=== PATIENT | male | born 1985 | race Two or more races ===

== ENCOUNTER 2024-05-19 16:15 | Emergency (ER) | payer MEDICAID, SELFPAY ==
--- NOTE | 2024-05-19 16:59 | EDNOTE_ITS ---
<Statement entered by Tasha Romero MD - 05/19/24 23:40> As co-signing physician, I was present and available for consult prn. I concur with the plan and care as documented by the midlevel provider. ED Psych RME/HPI General Chief Complaint: Psychiatric Symptoms Stated Complaint: HOLD FOR HALLUCINATION Time Seen by Provider: 05/19/24 16:47 Arrival date/time: 05/19/24 16:15 RME / HPI RME / HPI Narrative: 39-year-old male patient with significant history of polysubstance abuse, was just released from the [facility] senior care, and was placed on a 5150 hold due to gravely disabled. Family cannot take care of him since patient is having bizarre behavior, talking nonsense, and danger to himself. While in the senior care, patient is bagging his head on the wall. On my initial evaluation patient knows his name and does not answer questions when asked except for the name. EMS told me that the patient is having visual and auditory hallucination. Patient is not taking any medication for mental health. Patient is calm cooperative and calm. Related Data Home Medications ?Medication ?Instructions ?Recorded ?Confirmed Unobtainable 02/12/23 02/12/23 Allergies Allergy/AdvReac Type Severity Reaction Status Date / Time No Known Allergies Allergy Verified 09/06/18 16:34 Review of Systems Review of Systems Narrative Review of Systems: Review of system reviewed and within normal limits except mentioned in HPI ED Exam Narrative Physical exam: VITAL SIGNS: Reviewed. GENERAL APPEARANCE: Alert and interactive, does not follows commands, no acute distress, bizarre thoughts HEAD AND FACE: Non-traumatic. ENT: PERRL, pink conjunctivitis, eyelid no trauma, Mucous membrane moist. NECK: Supple, nontender, no nuchal rigidity. CHEST: No tenderness, no crepitus, no paradoxical movement, no retractions. LUNGS: Clear, well ventilated, symmetric, no rales, no wheezing, no ronchi, no stridor, good breath sounds bilaterally. HEART: Regular rate, regular rhythm, no murmur, no gallops. ABDOMEN: Soft, positive bowel sounds, nondistended, no guarding, nontender, no rebound, no masses, RECTAL: Deferred. GENITAL: Deferred. NEUROLOGICAL: Gross motor function intact sensory function intact, Appropriate for age. MUSCULOSKELETAL: low back nontender, full range of motion. EXTREMITIES: Nontender, full range of motion. SKIN: Color pink, dry, no rash, no lacerations, no abrasions, no contusions. LYMPHATICS: Deferred. Course Quality Measures none Orders Category Date Time Status Acetaminophen Stat Lab 05/19/24 17:04 Completed Alcohol, Blood Medical Stat Lab 05/19/24 17:04 Completed CBC Stat Lab 05/19/24 17:04 Completed CMP [Comprehensive Metabolic Panel] Stat Lab 05/19/24 17:04 Completed Drug Screen,Urine Stat Lab 05/19/24 16:58 Ordered Salicylate Stat Lab 05/19/24 17:04 Completed Urinalysis Stat Lab 05/19/24 16:58 Ordered Vital Signs Vital signs: Vital Signs Temperature 98.1 F 05/19/24 18:13 Pulse Rate 97 05/19/24 18:13 Respiratory Rate 17 05/19/24 18:13 Blood Pressure 123/69 05/19/24 18:13 Pulse Oximetry (%) 100 05/19/24 18:13 Oxygen Delivery Method Room Air 05/19/24 18:13 Psych MDM Narrative MDM Narrative:: 39-year-old male patient with significant history of polysubstance abuse, was just released from the [facility] senior care, and was placed on a 5150 hold due to gravely disabled. Family cannot take care of him since patient is having bizarre behavior, talking nonsense, and danger to himself. While in the senior care, patient is bagging his head on the wall. On my initial evaluation patient knows his name and does not answer questions when asked except for the name. EMS told me that the patient is having visual and auditory hallucination. Patient is not taking any medication for mental health. Patient is calm cooperative and calm. Patient's workup today all came back unremarkable. Patient is medically cleared for crisis the patient Care transferred to Dr Romero at 11 pm for final disposition Patient data External records reviewed:: None Clinical information provided by:: patient Social determinants that could affect healthcare access:: none Patient has the following chronic illnesses:: Polysubstance abuse How is presenting disease/condition affected by chronic disease/condition?: exacerbated by Evaluation data The following diagnostics were reviewed and interpreted by me:: lab results Lab and/or radiology exams considered but not ordered:: None Interpretation Summary: See results in MDM Medications / Prescriptions Medications or Prescriptions considered but not ordered:: None Medication administrations:: None Consultations Consultation(s) initiated? (list below): No Diagnosis Psych Differential Diagnosis: acute psychosis, chronic schizophrenia, suicidal ideation and other (Gravely disabled) Most likely diagnosis given after review of the tests above:: Gravely disabled, Admission Indicated Admission indicated?: not indicated Admission Request Was there a request for admission?: No Disposition Plan Disposition Plan: other (specify) Discharge Plan Prescriptions/Referrals Prescriptions/Med Rec: No Action Unobtainable Problem List Clinical Impression: Gravely disabled Patient/Caregiver Discharge Instructions Print Language: Korean
[2024-05-19 17:11] LABS: Basophils # (Auto) 0.1 Thou/mm3 (0.0-0.2); Basophils % (Auto) 1 % (0-2.5); Eosinophils # (Auto) 0.2 Thou/mm3 (0.0-0.5); Eosinophils % (Auto) 2 % (0-10); Hematocrit 42.4 % (41.0-53.0); Immature Granulocytes % (Auto) 0 % (0-0); Immature Granulocytes Auto 0.02 Thou/mm3 (0.00-0.00); Lymphocytes # (Auto) 2.2 Thou/mm3 (1.0-4.8); Lymphocytes % (Auto) 24 % (10-50); Mean Corpuscular HGB Conc 35.4 g/dl (31.0-37.0); Mean Corpuscular Hemoglobin 31.5 pg (25.0-35.0); Mean Corpuscular Volume 89 fL (80-100); Monocytes # (Auto) 1.2 Thou/mm3 (0.0-0.8); Monocytes % (Auto) 14 % (0-12); Neutrophils # (Auto) 5.4 Thou/mm3 (1.8-7.7); Neutrophils % (Auto) 59 % (37-80); Nucleated Red Blood Cell % 0 /100 WBC (0); Platelet Count 290 Thou/mm3 (140-440); RDW Standard Deviation 40.3 fL (35.1-43.9); Red Blood Count 4.76 Miln/mm3 (4.50-5.90); White Blood Count 9.1 Thou/mm3 (3.8-10.6)
[2024-05-19 17:54] VITALS: PULSE 92; RESP 20; O2SAT 99; BMI 26.4
[2024-05-19 18:13] VITALS: BP 123/69; PULSE 97; RESP 17; TEMP 36.7; O2SAT 100
[2024-05-19 18:15] LABS: Acetaminophen < 2.0 mcg/mL (10.0-20.0); Alanine Aminotransferase 29 U/L (10-49); Albumin, Serum 4.7 gm/dL (3.5-5.0); Albumin/Globulin Ratio 1.7 (1.2-2.2); Alcohol, Blood Medical < 3.0 mg/dL (0-10.0); Alkaline Phosphatase 93 U/L (46-116); Anion Gap 10 (7-16); Aspartate Amino Transferase 58 U/L (0-34); BUN/Creatinine Ratio 11 Ratio (12-20); Bilirubin,Total 1.3 mg/dL (0.3-1.2); Blood Urea Nitrogen 10 mg/dL (9-23); Calcium 9.4 mg/dL (8.3-10.6); Calcium (Corrected) 9.4 mg/dL (8.5-10.1); Carbon Dioxide 24.4 mMol/L (20.0-31.0); Chloride 102 mMol/L (98-107); Creatinine (Component) 0.9 mg/dL (0.6-1.3); Estimated Creatinine Clearance 89.4 mL/min (>60); Globulin 2.8 gm/dL (2.3-3.5); Glucose 84 mg/dL (74-106); Osmolality,Calculated 269 (275-295); Potassium 3.7 mMol/L (3.4-5.1); Salicylate < 3.0 mg/dL; Sodium 136 mMol/L (136-145); Total Protein 7.5 gm/dL (5.7-8.2); eGFR > 60 See Note
[2024-05-19 23:50] VITALS: BP 122/71; PULSE 103; RESP 17; TEMP 36.6; O2SAT 100
--- NOTE | 2024-05-20 00:32 | EDNOTE_ITS ---
Emergency Room Addendum Addendum Narrative: 2300: Care assumed from Mandi Odell. Past medical, surgical, social and family history reviewed. Vitals and home medications reviewed. Results and treatment plan discussed. I will assume the care of the patient at this time and will follow the patient, pending mental health evaluation and final disposition. Please refer to the emergency department record for history and examination from initial visit. The following addendum documentation note is intended to reflect any pending information, findings, or radiology results not included in the patient?s initial chart. Patient in observation for treatment and monitoring of psychiatric symptoms. Treatment plan includes psychiatric consult, reassessments, and possible placement into psychiatric facility. 0600: Care signed out to [facility] provider. Past medical, surgical, social and family history reviewed. Vitals and home medications reviewed. Results and treatment plan discussed. They will assume the care of the patient at this time and will follow the patient, pending mental health evaluation and final disposition. MD Attestation MD Attestation Scribe Attestation: I, Wiley Wall, am scribing for and in the presence of Dr. Romero. Provider Notation: Although this document has been carefully reviewed, there may still be some phonetic and other typographical errors. These errors are purely grammatical due to imperfections in the software program and should not be construed in any way to compromise the substance of the patient's medical care during this visit.
[2024-05-20 03:46] VITALS: BP 124/79; PULSE 97; RESP 16; TEMP 36.7; O2SAT 98
[2024-05-20 05:59] VITALS: BP 118/74; PULSE 101; RESP 18; TEMP 36.6; O2SAT 98
[2024-05-20 07:10] VITALS: BP 124/80; PULSE 97; RESP 19; TEMP 36.8; O2SAT 97
--- NOTE | 2024-05-20 07:12 | PD.EDADDENDU ---
Emergency Room Addendum <Yaquelin Melo - Last Filed: 05/20/24 07:13> Addendum Narrative: 0600: Care assumed from Dr. Romero, the previous shift emergency physician. Past medical, surgical, social and family history reviewed. Vitals and home medications reviewed. I will assume the care of the patient at this time, pending mental health evaluation and final disposition. Please refer to the emergency department record for history and examination from initial visit.? Physical exam by me shows patient under no acute distress at this time. <Moo Benavides MD - Last Filed: 05/20/24 07:36> Addendum Narrative: 0600: Care assumed from Dr. Romero, the previous shift emergency physician. Past medical, surgical, social and family history reviewed. Vitals and home medications reviewed. I will assume the care of the patient at this time, pending mental health evaluation and final disposition. Please refer to the emergency department record for history and examination from initial visit.? Physical exam by me shows patient under no acute distress at this time. Patient was comfortable throughout the night sleeping this morning was reevaluated and he is alert awake he is no longer showing any psychotic features. He evidently started using meth and last use was 2 days ago. He is also recently become homeless. dietary services director states that he is safe to go home they have revoked his 5150 status. They are given him resources and instructions. Patient is ambulatory alert and cooperative.
--- NOTE | 2024-05-20 07:54 | PC.CC ---
This is 39-year-old, male who presented to the ED due to being placed on a 5150 hold for being a gravely disabled adult. Patient appeared alert and oriented to self, place and situation. Patient was pleasant, his mood and and behavior are ordinary. Patient's thought process was logical and linear. Patient reported that he was arrested on 05/18/2024 for carrying a pipe with crystal methamphetamine. Patient reported that he feels so much better today. He reported that he is homeless. Patient reported that he has two children (ages: 11 y/o and 10 y/o); however, they reside with his aunt. Patient reported that he has no mental health history. Patient denied any HI, SI, A/h or V/h. Patient was able to identify community resources for shelters. MARIN provided psychoeducation and community resources for AOD and homelessness. MARIN discussed case with Letha SANCHEZ. MARIN rescinded 5150 hold for GDA. MARIN provided patient with new underwear, shorts and t-shirt. MARIN updated Dr. Benavides.
== END 2024-05-20 07:50 | disposition home or self-care (01) ==
PROVIDERS: Nurse Practitioner Family; Emergency Provider Emergency Medicine
DX: R44.0 Auditory hallucinations (principal); R44.1 Visual hallucinations; Z59.00 Homelessness unspecified; F15.10 Other stimulant abuse, uncomplicated; Z63.8 Other specified problems related to primary support group
CPT/HCPCS: 36415; 80053; 80307; 80320; 80329; 81001; 85025; 90839; 96127; 99284; G0480